=== PATIENT | male | born 1985 | race Caucasian/White ===

== ENCOUNTER 2018-01-29 07:30 | Emergency (ER) | payer OTHER ==
[2018-01-29 07:42] VITALS: BP 113/60; PULSE 63; TEMP 98; BMI 25.9
--- NOTE | 2018-01-29 07:43 | PDOC ---
History of Present Illness - General Chief Complaint: Respiratory Stated Complaint: SORE THROAT Time Seen by Provider: 01/29/18 07:43 Past History - Past Medical History Allergies/Adverse Reactions: Allergies Allergy/AdvReac Type Severity Reaction Status Date / Time No Known Allergies Allergy Verified 01/29/18 07:38 Cancer: Yes (LYMPHOMA) COPD: No - Immunization History Immunization Up to Date: Yes - Suicide/Smoking/Psychosocial Hx Smoking History: Current every day smoker Have you smoked in the past 12 months: Yes Number of Cigarettes Smoked Daily: 1 Cigars Per Day: 0 Information on smoking cessation initiated: No Hx Alcohol Use: No Drug/Substance Use Hx: No *Physical Exam - Vital Signs Last Vital Signs Temp Pulse Resp BP Pulse Ox 98 F 63 18 113/60 99 01/29/18 07:36 01/29/18 07:36 01/29/18 07:36 01/29/18 07:36 01/29/18 07:36 *DC/Admit/Observation/Transfer - Referrals Referrals: Jeremy Camargo MD [Primary Care Provider] - - Patient Instructions - Post Discharge Activity
--- NOTE | 2018-01-29 07:49 | PDOC ---
History of Present Illness - General History Source: Patient Exam Limitations: No Limitations - History of Present Illness Initial Comments: 01/29/18 08:26 The patient is a 32 year old male, with a significant past medical history of Hodgkins Lymphoma(last chemotherapy 2010), who presents to the emergency department with 3 week history of a cough. Patient reports his cough initially started off as dry, but is now productive of yellow sputum. He reports taking Mucinex and home remedies, for his symptoms with minimal relief. Patient admits he recently started smoking again about 3-4 weeks ago around the same time his cough started. However, he reports he only smoke 2 times a week. Patient reports developing associated sore throat, runny nose, and a frontal headache(3/10, nonradiating) over the past 3 days. He reports subjective fever several days ago, but denies any chills, dizziness, or ear ache. He denies any chest pain, shortness of breath, diaphoresis, or palpitations. He reports mild epigastric discomfort radiating into the left costal margin, but denies any nausea, vomiting, or hemoptysis. He denies any recent travel. 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 Patient states he had bloodwork at PCPs office 1 week ago, which was negative. Allergies: NKDA Past Surgical History: None reported Social History: Current some day smoker. No ETOH or recreational drug use. PCP: Dr. Camargo <Hanane Curran - Last Filed: 01/29/18 08:26> <Manjula Jauregui - Last Filed: 01/29/18 09:40> - General Chief Complaint: Respiratory Stated Complaint: SORE THROAT Time Seen by Provider: 01/29/18 07:43 Past History <Hanane Curran - Last Filed: 01/29/18 08:26> - Past Medical History Cancer: Yes (LYMPHOMA) COPD: No - Immunization History Immunization Up to Date: Yes - Suicide/Smoking/Psychosocial Hx Smoking History: Current every day smoker Have you smoked in the past 12 months: Yes Number of Cigarettes Smoked Daily: 1 Cigars Per Day: 0 Information on smoking cessation initiated: No Hx Alcohol Use: No Drug/Substance Use Hx: No <Manjula Jauregui - Last Filed: 01/29/18 09:40> - Past Medical History Allergies/Adverse Reactions: Allergies Allergy/AdvReac Type Severity Reaction Status Date / Time No Known Allergies Allergy Verified 01/29/18 07:38 Home Medications: Ambulatory Orders Azithromycin [Zithromax 250mg Tablets -] 250 mg PO UTDICT #6 tab 01/29/18 Review of Systems - Review of Systems Able to Perform ROS?: Yes Comments:: 01/29/18 08:26 GENERAL/CONSTITUTIONAL: +Fever. No chills. No weakness. HEAD, EYES, EARS, NOSE AND THROAT: +Sore throat, runn nose. No change in vision. No ear pain or discharge. CARDIOVASCULAR: No chest pain or shortness of breath. RESPIRATORY: +Cough productive of yellow sputum. No wheezing, or hemoptysis. GASTROINTESTINAL: +Epigastric discomfort radiating to left costal margin. No nausea, vomiting, diarrhea or constipation. GENITOURINARY: No dysuria, frequency, or change in urination. MUSCULOSKELETAL: No joint or muscle swelling or pain. No neck or back pain. SKIN: No rash NEUROLOGIC: +Headache. No vertigo, loss of consciousness, or change in strength/ sensation. ENDOCRINE: No increased thirst. No abnormal weight change. HEMATOLOGIC/LYMPHATIC: No anemia, easy bleeding, or history of blood clots. ALLERGIC/IMMUNOLOGIC: No hives or skin allergy. <Curran,Giomilsy - Last Filed: 01/29/18 08:26> *Physical Exam - Vital Signs Last Vital Signs Temp Pulse Resp BP Pulse Ox 98 F 63 18 113/60 99 01/29/18 07:36 01/29/18 07:36 01/29/18 07:36 01/29/18 07:36 01/29/18 08:10 - Physical Exam Comments: 01/29/18 08:28 GENERAL: Awake, alert, and fully oriented, in no acute distress HEAD: No signs of trauma EYES: PERRLA, EOMI, sclera anicteric, conjunctiva clear ENT: +Enlarged tonsils bilaterally with no exudates. Boggy turbinates. Auricles normal inspection, hearing grossly normal, oropharynx clear without exudates. Moist mucosa NECK: Normal ROM, supple, no lymphadenopathy, JVD, or masses LUNGS: Breath sounds equal, clear to auscultation bilaterally. No wheezes, and no crackles HEART: Regular rate and rhythm, normal S1 and S2, no murmurs, rubs or gallops ABDOMEN: Soft, nontender, normoactive bowel sounds. No guarding, no rebound. No masses EXTREMITIES: Normal range of motion, no edema. No clubbing or cyanosis. No cords, erythema, or tenderness NEUROLOGICAL: Cranial nerves II through XII grossly intact. Normal speech, normal gait SKIN: Warm, Dry, normal turgor, no rashes or lesions noted. <Hanane Curran - Last Filed: 01/29/18 08:26> - Vital Signs Last Vital Signs Temp Pulse Resp BP Pulse Ox 98 F 63 18 113/60 99 01/29/18 07:36 01/29/18 07:36 01/29/18 07:36 01/29/18 07:36 01/29/18 07:36 <Manjula Jauregui - Last Filed: 01/29/18 09:40> Medical Decision Making - Medical Decision Making 01/29/18 09:38 Pt has recently resumed smoking, presenting with at least 2 weeks of productive cough. No upper airway symptoms. Will treat with abx based on smoking history and the lack of improvement after OTC meds for past 2 weeks. Stable for DC home. <Manjula Jauregui - Last Filed: 01/29/18 09:40> *DC/Admit/Observation/Transfer - Attestations Scribe Attestion: 01/29/18 08:28 Documentation prepared by Hanane Curran, acting as medical driver for Manjula Jauregui MD. <Hanane Curran - Last Filed: 01/29/18 08:26> - Discharge Dispostion Decision to Admit order: No <Manjula Jaruegui - Last Filed: 01/29/18 09:40> Diagnosis at time of Disposition: Bronchitis - Discharge Dispostion Disposition: HOME Condition at time of disposition: Stable - Prescriptions Prescriptions: Azithromycin [Zithromax 250mg Tablets -] 250 mg PO UTDICT #6 tab - Referrals Referrals: Jeremy Camargo MD [Primary Care Provider] - - Patient Instructions Printed Discharge Instructions: DI for Acute Bronchitis - Post Discharge Activity
== END 2018-01-29 10:09 | disposition home or self-care (01) ==
LOC: JER 07:30
DX: J40 Bronchitis, not specified as acute or chronic (principal); F17.210 Nicotine dependence, cigarettes, uncomplicated; Z85.71 Personal history of Hodgkin lymphoma
CPT/HCPCS: 71046-TC-FY; 87070; 87077; 87430; 99283-25

== ENCOUNTER 2018-07-19 08:15 | Emergency (ER) | payer OTHER ==
[2018-07-19 08:32] VITALS: BP 107/60; PULSE 77; TEMP 99.1; BMI 20.5
--- NOTE | 2018-07-19 08:50 | PDOC ---
History of Present Illness - General Chief Complaint: Sore Throat Stated Complaint: SORE THROAT Time Seen by Provider: 07/19/18 08:41 History Source: Patient Exam Limitations: Clinical Condition - History of Present Illness Initial Comments: 07/19/18 08:47 Patient with no significant past medical history present with complaint of sore throat and nasal congestion since yesterday. Patient denies fever or chills. Patient reported enlarged tonsils on the left side and painful to swallow. Patient denies any other symptoms Timing/Duration: 24 hours Past History - Past Medical History Allergies/Adverse Reactions: Allergies Allergy/AdvReac Type Severity Reaction Status Date / Time No Known Allergies Allergy Verified 07/19/18 08:32 Home Medications: Ambulatory Orders Amoxicillin/Potassium Clav [Augmentin 875-125 Tablet] 1 each PO BID 7 Days #14 tablet 07/19/18 Cancer: Yes (LYMPHOMA) COPD: No - Immunization History Immunization Up to Date: Yes - Suicide/Smoking/Psychosocial Hx Smoking History: Never smoked Have you smoked in the past 12 months: No Number of Cigarettes Smoked Daily: 0 Cigars Per Day: 0 Hx Alcohol Use: No Drug/Substance Use Hx: No Review of Systems - Review of Systems Able to Perform ROS?: Yes Is the patient limited Cymro proficient: No Constitutional: No: Chills, Fever HEENTM: Yes: Symptoms Reported, See HPI, Nose Congestion, Throat Pain, Difficulty Swallowing. No: Eye Pain, Blurred Vision, Tearing, Recent change in vision, Double Vision, Cataracts, Ear Pain, Ocular Prothesis, Ear Discharge, Nose Pain, Tinnitus, Nose Bleeding, Hearing Loss, Throat Swelling, Mouth Pain, Dental Problems, Mouth Swelling, Other Respiratory: No: Symptoms reported, See HPI, Cough, Orthopnea, Shortness of Breath, SOB with Exertion, SOB at Rest, Stridor, Wheezing, Productive cough, Hemoptysis, Other Cardiac (ROS): No: Symptoms Reported, See HPI, Chest Pain, Edema, Irregular Heart Rate, Lightheadedness, Palpitations, Syncope, Chest Tightness, Other ABD/GI: No: Nausea, Vomiting All Other Systems: Reviewed and Negative *Physical Exam - Vital Signs Last Vital Signs Temp Pulse Resp BP Pulse Ox 99.1 F 77 16 107/60 99 07/19/18 08:30 07/19/18 08:30 07/19/18 08:30 07/19/18 08:30 07/19/18 08:30 - Physical Exam Comments: 07/19/18 08:48 GENERAL: Well developed, well nourished. Awake and alert. No acute distress. HEENT: Moderate pharyngeal erythema. Moderately enlarged left erythematous tonsils. Normocephalic, atraumatic. PERRLA, EOMI. No conjunctival pallor. Sclera are non-icteric. Moist mucous membranes. NECK: Supple. Full ROM. CARDIOVASCULAR: Regular rate and rhythm. No murmurs, rubs, or gallops. Distal pulses are 2+ and symmetric. PULMONARY: No evidence of respiratory distress. Lungs clear to auscultation bilaterally. No wheezing, rales or rhonchi. ABDOMINAL: Soft. Non-tender. Non-distended. No rebound or guarding. No organomegaly. Normoactive bowel sounds. MUSCULOSKELETAL Normal range of motion at all joints. SKIN: Warm and dry. Normal capillary refill. No rashes. No jaundice. NEUROLOGICAL: Alert, awake, appropriate. Gait is normal without ataxia. PSYCHIATRIC: Cooperative. Good eye contact. Appropriate mood General Appearance: Yes: Nourished, Appropriately Dressed. No: Apparent Distress Moderate Sedation - Procedure Monitoring Vital Signs: Procedure Monitoring Vital Signs Temperature 99.1 F 07/19/18 08:30 Pulse Rate 77 07/19/18 08:30 Respiratory Rate 16 07/19/18 08:30 Blood Pressure 107/60 07/19/18 08:30 O2 Sat by Pulse Oximetry (%) 99 07/19/18 08:30 Medical Decision Making - Medical Decision Making 07/19/18 08:49 Patient with no significant past medical history present with complaint of 24 hour history of sore throat and nasal congestion. Exam significant for moderately enlarged left tonsils with moderate throat erythema. Rapid strep tests ordered. Treat based on lab results 07/19/18 09:36 Rapid strep positive.Patient is stable for outpatient treatment with Augmentin and ENT follow-up as needed. *DC/Admit/Observation/Transfer Diagnosis at time of Disposition: Strep pharyngitis, Tonsillitis - Discharge Dispostion Disposition: HOME Condition at time of disposition: Stable Decision to Admit order: No - Prescriptions Prescriptions: Amoxicillin/Potassium Clav [Augmentin 875-125 Tablet] 1 each PO BID 7 Days #14 tablet - Referrals Referrals: Jeremy Camargo MD [Primary Care Provider] - Terry Cornejo MD [Staff Physician] - - Patient Instructions Printed Discharge Instructions: Throat Culture Additional Instructions: Your rapid strep was positive. Take medication as prescribed. Increase fluid intake. Take Motrin as needed for pain. Follow-up referred ENT if symptoms does not improve in 4 days. - Post Discharge Activity
== END 2018-07-19 09:41 | disposition home or self-care (01) ==
LOC: JERFT 08:15
DX: J02.0 Streptococcal pharyngitis (principal); B95.0 Streptococcus, group A, as the cause of diseases classified elsewhere; Z85.72 Personal history of non-Hodgkin lymphomas
CPT/HCPCS: 87880; 99281-25

== ENCOUNTER 2019-06-14 09:23 | Emergency (ER) | payer OTHER ==
[2019-06-14 09:31] VITALS: BMI 26.1
[2019-06-14] MEDS ORDERED: PHENAZOPYRIDINE HCL 100 MG TABLET (FP) ONE (09:53)
[2019-06-14 10:57] LABS: VENOUS PC02 55.8 mmHg (38-52); VENOUS PH 7.35 (7.31-7.41)
[2019-06-14 10:58] LABS: VENOUS PO2 < 49 mmHg (28-48)
[2019-06-14 11:06] LABS: BASO % 0.2 % (0-2.0); EOS % 0.9 % (0-4.5); HEMATOCRIT 42.7 % (35.4-49); LYMPH % 19.2 % (8-40); MCH 26.5 pg (25.7-33.7); MCHC 32.9 g/dl (32.0-35.9); MEAN CELL VOLUME 80.6 fl (80-96); MEAN PLT VOLUME 9.2 fl (7.5-11.1); MONO % 4.7 % (3.8-10.2); PLATELET COUNT 233 K/MM3 (134-434); RBC 5.29 M/mm3 (4.00-5.60); RDW 13.4 % (11.9-15.9); WHITE BLOOD COUNT 5.9 K/mm3 (4.0-10.0)
[2019-06-14 11:28] LABS: ANION GAP 4 MMOL/L (8-16); BLOOD UREA NITROGEN 9.1 mg/dL (7-18); CALCIUM 9.2 mg/dL (8.5-10.1); CHLORIDE 103 mmol/L (98-107); CO2 31 mmol/L (21-32); GLUCOSE,RANDOM 90 mg/dL (74-106); POTASSIUM 4.2 mmol/L (3.5-5.1); SODIUM 139 mmol/L (136-145); TOT PROT 7.7 g/dl (6.4-8.2)
[2019-06-14 11:29] LABS: ALBUMIN 4.2 g/dl (3.4-5.0); ALK PHOS 70 U/L (45-117); BILIRUBIN,TOTAL 0.5 mg/dL (0.2-1); SGOT/AST 17 U/L (15-37); SGPT/ALT 35 U/L (13-61)
[2019-06-14 12:30] LABS: URINE APPEARANCE CLEAR; URINE BILIRUBIN NEGATIVE (NEGATIVE); URINE COLOR YELLOW; URINE GLUCOSE (UA) NEGATIVE (NEGATIVE); URINE KETONE NEGATIVE (NEGATIVE); URINE LEUK ESTERASE NEGATIVE (NEGATIVE); URINE NITRITE NEGATIVE (NEGATIVE); URINE PROTEIN NEGATIVE (NEGATIVE); URINE UROBILINOGEN 0.2 mg/dL (0.2-1.0)
[2019-06-14 13:16] VITALS: BP 113/67; PULSE 56; TEMP 97.9
--- NOTE | 2019-06-14 14:23 | PDOC ---
Documentation entered by Duncan Hess SCRIBE, acting as scribe for Melani Merida MD. Melani Merida MD: This documentation has been prepared by the Jimena balderas Nirvannie, SCRIBE, under my direction and personally reviewed by me in its entirety. I confirm that the documentation accurately reflects all work, treatment, procedures, and medical decision making performed by me. History of Present Illness - General Chief Complaint: Pain Stated Complaint: ABD PAIN/ RECTAL BLEED Time Seen by Provider: 06/14/19 09:36 History Source: Patient Exam Limitations: No Limitations - History of Present Illness Initial Comments: 06/14/19 12:26 The patient is a 34 year old male, with a significant past medical history of Hodgkin's Lymphoma and anal fistula, who presents to the emergency department with, bleeding rectal fistula. As per patient, his rectal fistula has become progressively swollen for the past two weeks then ruptured yesterday causing significant bleeding. Patient notes the process occurs every two weeks, however , yesterday's episode depicted a greater amount of blood. Patient notes today he has been experiencing confusion, headache, burning abdominal discomfort, throat pain, and nausea which is congruent with prior episodes of ruptured fistulas. He notes associated fevers and chills 2 days ago and 6 days ago Tmax 101F. He denies any recent chest pain or shortness of breath. He denies any recent dysuria, frequency, urgency or hematuria. Allergies: NKDA Is this a multiple visit Asthma Patient?: No Past History - Past Medical History Allergies/Adverse Reactions: Allergies Allergy/AdvReac Type Severity Reaction Status Date / Time No Known Allergies Allergy Verified 06/14/19 09:31 Home Medications: Ambulatory Orders Bifidobacterium Infantis [Align] 10.5 mg PO DAILY PRN #30 tab.chew 06/14/19 Ciprofloxacin [Cipro (Restricted To Id)] 500 mg PO Q12H #10 tablet 06/14/19 metroNIDAZOLE [Flagyl -] 500 mg PO TID #15 tablet 06/14/19 Cancer: Yes (HODGKINS LYMPHOMA) COPD: No GI Disorders: Yes (RECTAL FISTULA) Thyroid Disease: Yes (HYPOTHYROID) - Immunization History Immunization Up to Date: Yes - Psycho Social/Smoking Cessation Hx Smoking History: Never smoked Have you smoked in the past 12 months: No Number of Cigarettes Smoked Daily: 0 Cigars Per Day: 0 Information on smoking cessation initiated: No Hx Alcohol Use: No Drug/Substance Use Hx: No Review of Systems - Review of Systems Able to Perform ROS?: Yes Comments:: 06/14/19 12:27 CONSTITUTIONAL: No fever, no chills, no fatigue EYES: No visual changes ENT: No ear pain, no sore throat CARDIOVASCULAR: No chest pain, no palpitations RESPIRATORY: No cough, no SOB GI: +Rectal fistula bleeding. No abdominal pain, no nausea, no vomiting, no constipation, no diarrhea GENITOURINARY: No dysuria, no frequency, no hematuria MUSKULOSKELETAL: No back pain, no joint pain, no myalgias SKIN: No rash NEURO: No headache All Other Systems: Reviewed and Negative *Physical Exam - Vital Signs Last Vital Signs Temp Pulse Resp BP Pulse Ox 98.8 F 64 17 126/78 100 06/14/19 09:25 06/14/19 09:25 06/14/19 09:25 06/14/19 09:25 06/14/19 09:25 - Physical Exam 06/14/19 12:27 GENERAL: The patient is in no acute distress. HEAD: Normal with no signs of trauma. EYES: PERRLA, EOMI, sclera anicteric, conjunctiva clear. ENT: Ears normal, nares patent, oropharynx clear without exudates. Moist mucous membranes. NECK: Normal range of motion, supple without lymphadenopathy, JVD, or masses. LUNGS: Breath sounds equal, clear to auscultation bilaterally. No wheezes, and no crackles. HEART:Regular rate and rhythm, normal S1 and S2 without murmur, rub or gallop. ABDOMEN: Soft, nontender, normoactive bowel sounds. No guarding, no rebound. No masses palpable. RECTAL: +Deferred. Left buttock: +Adjacent to the left anus small open indurated area with minimal purulent drainage when pressed upon. EXTREMITIES: Normal range of motion, no edema. No clubbing or cyanosis. No erythema, or tenderness. NEUROLOGICAL: Cranial nerves II through XII grossly intact. Normal speech. No focal neurological deficits. MUSCULOSKELETAL: Back non-tender to palpation, no CVA tenderness SKIN: Warm, Dry, normal turgor, no rashes or lesions noted. ED Treatment Course - LABORATORY CBC & Chemistry Diagram: 06/14/19 10:43 06/14/19 10:43 - ADDITIONAL ORDERS Additional order review: Laboratory Results 06/14/19 06/14/19 06/14/19 12:00 10:43 10:43 VBG pH 7.35 POC VBG pCO2 55.8 H POC VBG pO2 < 49 H VBG HCO3 29.8 H VBG O2 Sat (Yolanda) 37.4 L VBG Base Excess 3.1 H Sodium Potassium Chloride Carbon Dioxide Anion Gap BUN Creatinine Est GFR (CKD-EPI)AfAm Est GFR (CKD-EPI)NonAf Random Glucose Lactic Acid Calcium Total Bilirubin AST ALT Alkaline Phosphatase Creatine Kinase 141 CK-MB (CK-2) Cancelled Troponin I < 0.02 Total Protein Albumin Urine Color Yellow Urine Appearance Clear Urine pH 8.0 D Ur Specific Orient 1.007 L Urine Protein Negative Urine Glucose (UA) Negative Urine Ketones Negative Urine Blood Negative Urine Nitrite Negative Urine Bilirubin Negative Urine Urobilinogen 0.2 Ur Leukocyte Esterase Negative 06/14/19 06/14/19 10:43 10:43 VBG pH POC VBG pCO2 POC VBG pO2 VBG HCO3 VBG O2 Sat (Yolanda) VBG Base Excess Sodium 139 Potassium 4.2 Chloride 103 Carbon Dioxide 31 Anion Gap 4 L BUN 9.1 Creatinine 1.0 Est GFR (CKD-EPI)AfAm 114.11 Est GFR (CKD-EPI)NonAf 98.45 Random Glucose 90 Lactic Acid 1.5 Calcium 9.2 Total Bilirubin 0.5 AST 17 ALT 35 Alkaline Phosphatase 70 Creatine Kinase 129 CK-MB (CK-2) Troponin I < 0.02 Total Protein 7.7 Albumin 4.2 Urine Color Urine Appearance Urine pH Ur Specific Orient Urine Protein Urine Glucose (UA) Urine Ketones Urine Blood Urine Nitrite Urine Bilirubin Urine Urobilinogen Ur Leukocyte Esterase 06/14/19 10:43 RBC 5.29 MCV 80.6 MCHC 32.9 RDW 13.4 MPV 9.2 Neutrophils % 75.0 Lymphocytes % 19.2 D Monocytes % 4.7 Eosinophils % 0.9 Basophils % 0.2 - RADIOLOGY Radiology Studies Ordered: Category Date Time Status ABDOMEN & PELVIS CT WITH CONTR [CT] Stat CT Scan 06/14/19 10:03 Taken CHEST X-RAY PORTABLE* [RAD] Stat Radiology 06/14/19 10:00 Completed Medical Decision Making - Medical Decision Making 06/14/19 14:48 Twelve-lead EKG was performed and reviewed by me. There is normal sinus rhythm with a normal rate. The axis is normal. The intervals are normal. There are no ST or T wave abnormalities. Impression: Normal twelve-lead EKG 06/14/19 14:49 Laboratory Tests 06/14/19 06/14/19 06/14/19 10:43 10:43 10:43 WBC 5.9 Hgb 14.0 Hct 42.7 Plt Count 233 D BUN 9.1 Creatinine 1.0 Lactic Acid 1.5 Urine Blood Urine Nitrite Ur Leukocyte Esterase 06/14/19 12:00 WBC Hgb Hct Plt Count BUN Creatinine Lactic Acid Urine Blood Negative Urine Nitrite Negative Ur Leukocyte Esterase Negative CT pending 06/14/19 17:06 CT with no acute abscess, fluid collection, fistula 06/14/19 17:07 Patient's lactate is normal, WBC normal I do not believe this patient is septic He has no other signs of infection as assessed by urinalysis and chest x-ray Will give prescription for Cipro and Flagyl as patient does have an area of drainage near the anus Patient was asked to follow-up with both GI and colorectal surgery (he already has established consults for both) within 1 week Return to the ER for any other concerns or complaint Clinical impression: Perianal collection, initial presentation Perianal fistula, initial presentation Discharge - Discharge Information Problems reviewed: Yes Clinical Impression/Diagnosis: Abscess of buttock, left Condition: Stable Disposition: HOME - Admission No - Additional Discharge Information Prescriptions: Bifidobacterium Infantis [Align] 10.5 mg PO DAILY PRN #30 tab.chew PRN Reason: antibiotic use Ciprofloxacin [Cipro (Restricted To Id)] 500 mg PO Q12H #10 tablet metroNIDAZOLE [Flagyl -] 500 mg PO TID #15 tablet - Follow up/Referral Referrals: Soham Whipple MD [Staff Physician] - - Patient Discharge Instructions Patient Printed Discharge Instructions: DI for Anal Abscess, DI for Anal Fissure Additional Instructions: Mr. Buck Thank you for coming into the emergency department today. You must follow-up with Dr. Whipple and your colorectal surgeon within 1 week Please take antibiotics if you notice a reaccumulation of the collection/ swelling near the anus Please monitor yourself for fevers or chills If you notice fevers, please return to the ER Return to the ER for any other concerns or complaints - Post Discharge Activity Work/Back to School Note: Back to Work
--- NOTE | 2019-06-15 14:44 | EKG ---
Test Reason : Blood Pressure : / mmHG Vent. Rate : 059 BPM Atrial Rate : 059 BPM P-R Int : 128 ms QRS Dur : 088 ms QT Int : 390 ms P-R-T Axes : 037 -12 -13 degrees QTc Int : 386 ms SINUS BRADYCARDIA VOLTAGE CRITERIA FOR LEFT VENTRICULAR HYPERTROPHY ABNORMAL ECG WHEN COMPARED WITH ECG OF 12-APR-2016 23:52, NO SIGNIFICANT CHANGE WAS FOUND Confirmed by VENANCIO VALENZUELA MD ([id number]) on 06/15/2019 2:44:07 PM Referred By: Confirmed By:VENANCIO VALENZUELA MD
== END 2019-06-14 17:43 | disposition home or self-care (01) ==
LOC: JER 09:23
DX: L02.31 Cutaneous abscess of buttock (principal); C81.90 Hodgkin lymphoma, unspecified, unspecified site
CPT/HCPCS: 36415; 71045-TC-FY; 74177-TC; 80053; 81003; 82550; 82803; 83605; 84484; 85025; 87040; 87086; 93005; 93010; 99283-25; Q9967

== ENCOUNTER 2019-09-10 10:00 | Emergency (ER) | payer OTHER ==
[2019-09-10 10:11] VITALS: BP 132/88; PULSE 85; TEMP 98.5; BMI 26.6
--- NOTE | 2019-09-10 10:30 | PDOC ---
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 He went to see his doctor and was prescribed Augmentin, he reports that no strep test was performed. He took the Augmentin for a few days and then stopped. The Augmentin upset his stomach and gave him a little bit of diarrhea. He stopped the Augmentin and the diarrhea resolved. Initially the throat was hurting more on the left side, increased pain with swallowing, and now it is hurting on the right side. There has been no fever, no cough, no vomiting, and there was slight diarrhea when taking Augmentin which has now resolved. REVIEW OF SYSTEMS: No fever or chills No vomiting Positive diarrhea, now resolved Positive sore throat, increased pain with swallowing No swollen glands or neck stiffness Positive chronic neck pain, seeing a chiropractor, had MRI of the neck done Past History - Past Medical History Allergies/Adverse Reactions: Allergies Allergy/AdvReac Type Severity Reaction Status Date / Time No Known Allergies Allergy Verified 09/10/19 10:01 Home Medications: Ambulatory Orders Amoxicillin/Potassium Clav [Augmentin 875-125 Tablet] 1 each PO BID 09/10/19 Cancer: Yes ([facility] LYMPHOMA, 2010, cured) COPD: No GI Disorders: Yes (RECTAL FISTULA) Thyroid Disease: Yes (HYPOTHYROID) - Immunization History Immunization Up to Date: Yes - Psycho Social/Smoking Cessation Hx Smoking History: Never smoked Have you smoked in the past 12 months: No Number of Cigarettes Smoked Daily: 0 Cigars Per Day: 0 Information on smoking cessation initiated: No Hx Alcohol Use: No Drug/Substance Use Hx: No *Physical Exam - Vital Signs Last Vital Signs Temp Pulse Resp BP Pulse Ox 98.5 F 85 20 132/88 100 09/10/19 10:01 09/10/19 10:01 09/10/19 10:01 09/10/19 10:01 09/10/19 10:01 - Physical Exam 09/10/19 10:29 GENERAL: The patient is awake, alert, and fully oriented, in no acute distress. HEAD: Normal with no signs of trauma. EYES: Pupils equal, round and reactive to light, extraocular movements intact, sclera anicteric, conjunctiva clear. ENT: Ears normal. Nares patent without erythema or discharge. Oropharynx without trismus, posterior pharynx with normal tonsils, the pharynx has some mild posterior erythema without exudates. Patient is swallowing saliva normally. Uvula is normal. NECK: Normal range of motion, supple without lymphadenopathy, JVD, or masses. LUNGS: Breath sounds equal, clear to auscultation bilaterally. No wheezes, and no crackles. HEART: Regular rate and rhythm, normal S1 and S2 without murmur, rub or gallop. ABDOMEN: Soft, nontender, normoactive bowel sounds. No guarding, no rebound. No masses. EXTREMITIES: Normal range of motion, no edema. No clubbing or cyanosis. No cords, erythema, or tenderness. NEUROLOGICAL: Cranial nerves II through XII grossly intact. Normal speech, normal gait. PSYCH: Normal mood, normal affect. SKIN: Warm, Dry, normal turgor, no rashes or lesions noted. Medical Decision Making - Medical Decision Making 09/10/19 10:56 Patient is a 34-year-old man who presents complaining of 10 days of sore throat. He was seen by his doctor 10 days ago and initially treated with Augmentin. The Augmentin upset his stomach so he stopped taking it after a few days. He again tried to take another dose and again got an upset stomach so he again stopped. Currently he complains of some left-sided throat discomfort, increased on swallowing. There is no fever. There is no cough. On examination, there is mild posterior pharyngeal erythema without other significant findings. He is afebrile. Rapid strep culture performed. Negative results. Impression: Viral pharyngitis with negative strep test. Plan: Gargle with warm salt water. Take Tylenol every 4 hours as needed for throat pain. Expectation is resolution with time. No signs of serious illness. Patient is stable for discharge. Discharge - Discharge Information Problems reviewed: No Clinical Impression/Diagnosis: Viral pharyngitis Condition: Stable Disposition: HOME - Admission No - Follow up/Referral - Patient Discharge Instructions Patient Printed Discharge Instructions: DI for Viral Pharyngitis Additional Instructions: You were evaluated today for a sore throat. The strep test is negative, indicating a viral throat infection. You should stop taking Augmentin. Antibiotics have no effect on a viral infection. You are advised to gargle with warm salt water in the back of your throat 3 times a day. Take Tylenol every 4 hours as needed for pain. Follow-up with your physician next week. Return to the emergency department for any severe or progressive symptoms. - Post Discharge Activity
== END 2019-09-10 11:06 | disposition home or self-care (01) ==
LOC: FER 10:00
DX: J02.9 Acute pharyngitis, unspecified (principal); B97.89 Other viral agents as the cause of diseases classified elsewhere; E03.9 Hypothyroidism, unspecified; C81.90 Hodgkin lymphoma, unspecified, unspecified site; K60.4 Rectal fistula
CPT/HCPCS: 87070; 87880; 99282-25

== ENCOUNTER 2020-10-05 12:23 | Emergency (ER) | payer OTHER ==
[2020-10-05 12:38] VITALS: BP 146/84; PULSE 93; TEMP 98.9; BMI 25.7
[2020-10-05 13:46] LABS: BASO % 2.5 % (0-2.0); EOS % 1.2 % (0-4.5); HEMATOCRIT 45.4 % (35.4-49); HEMOGLOBIN 14.7 GM/dl (11.7-16.9); LYMPH % 15.8 % (8-40); MCH 26.2 pg (25.7-33.7); MCHC 32.4 g/dl (32.0-35.9); MEAN CELL VOLUME 80.8 fl (80-96); MEAN PLT VOLUME 9.4 fl (7.5-11.1); MONO % 3.6 % (3.8-10.2); NEUT % 76.9 % (42.8-82.8); PLATELET COUNT 241 K/MM3 (134-434); RBC 5.61 M/mm3 (4.00-5.60); RDW 13.3 % (11.9-15.9); WHITE BLOOD COUNT 6.9 K/mm3 (4.0-10.8)
[2020-10-05 14:00] LABS: ALBUMIN 4.1 g/dl (3.4-5.0); BILIRUBIN,TOTAL 0.6 mg/dl (0.2-1); CALCIUM 9.2 mg/dl (8.5-10); TOT PROT 7.5 g/dl (6.4-8.2)
[2020-10-05 14:05] LABS: POTASSIUM 4.6 mmol/L (3.5-5.1)
== END 2020-10-05 14:25 | disposition home or self-care (01) ==
LOC: FER 12:23
DX: R10.2 Pelvic and perineal pain (principal)
CPT/HCPCS: 36415; 74018-TC-FY; 80053; 81003; 85025; 87086; 87491; 87591; 99284-25

== ENCOUNTER 2021-10-21 11:42 | Emergency (ER) | payer SELFPAY ==
[2021-10-21 12:15] VITALS: BP 126/69; PULSE 72; TEMP 99.2; BMI 26.9
[2021-10-21] MEDS ORDERED: LIDOCAINE 5% TOPICAL PATCH TP ONE (12:22)
[2021-10-21] MEDS ORDERED: ACETAMINOPHEN 500 MG TABLET (FP) PO ONE (12:22)
[2021-10-21] MEDS ORDERED: LIDOCAINE 5% TOPICAL PATCH ONE (12:28)
[2021-10-21] MEDS ORDERED: ACETAMINOPHEN 325 MG TABLET (FP) ONE (12:28)
[2021-10-21] MEDS ORDERED: FAMOTIDINE 20 MG TABLET ONE (12:28)
[2021-10-21] MEDS ORDERED: IBUPROFEN 400 MG TABLET (FP) PO ONE (12:28)
[2021-10-21] MEDS: IBUPROFEN 400 MG TABLET (FP) PO ONE ×2 (12:32→12:41)
[2021-10-21] MEDS: FAMOTIDINE 20 MG TABLET PO ONE ×2 (12:33→12:41)
[2021-10-21] MEDS ORDERED: LIDOCAINE PATCH REMOVAL MC SCH (22:00)
== END 2021-10-21 13:09 | disposition home or self-care (01) ==
LOC: FER 11:42
DX: M54.6 Pain in thoracic spine (principal)
CPT/HCPCS: 73030-TC-LT-FY; 99283-25